=== PATIENT | female | born 1955 | race Caucasian/White ===

== ENCOUNTER 2016-12-06 16:08 | Outpatient (CLI) | payer OTHER ==
[2016-02-02 11:31] VITALS: BP 145/62
[2016-12-06 16:55] LABS: eGFR (African) > 60; eGFR (Non-African) > 60
== END 2016-12-06 16:10 ==
LOC: RAD 16:08
PROVIDERS: ATTEND Family Medicine
DX: Z00.00 Encounter for general adult medical examination without abnormal findings (principal); Z12.4 Encounter for screening for malignant neoplasm of cervix
CPT/HCPCS: 36415; 80053; 80061; 88148; G0143